=== PATIENT | female | born 2000 | race Caucasian/White ===

== ENCOUNTER → 2021-01-27 | Outpatient (CLI) | payer OTHER ==
[2021-01-27 14:16] LABS: BASO # 0.1 10*3/uL (0.0-0.1); BASO % 0.9 % (0.0-1.0); EOS # 0.3 10*3/uL (0.0-0.4); EOS % 3.3 % (1.0-4.0); HEMATOCRIT 39.8 % (37.0-47.0); LYMPH # 3.3 10*3/uL (1.3-4.4); LYMPH % 35.6 % (27.0-41.0); MEAN CELL VOLUME 96.6 fl (81.0-99.0); MEAN CORPUSCULAR HGB 31.3 pg (27.0-31.0); MEAN CORPUSCULAR HGB CONC 32.4 g/dl (33.0-37.0); MEAN PLATELET VOLUME 9.3 fl (9.6-12.3); MONO # 0.6 10*3/uL (0.1-1.0); MONO % 6.2 % (3.0-9.0); NEUT % 53.6 % (47.0-73.0); PLATELET COUNT AUTOMATED 351 10*3/uL (130-400); RED BLOOD COUNT 4.12 10*6/uL (4.10-5.10); RED CELL DISTRI WIDTH 12.9 % (0-14.5); RETICULOCYTE % 1.22 % (0.50-2.50); WHITE BLOOD COUNT 9.3 10*3/uL (4.8-10.8)
[2021-01-27 14:30] LABS: BILIRUBIN Negative (Negative); BLOOD Negative (Negative); CLARITY Clear (Clear); COLOR Yellow (Yellow); GLUCOSE Negative (Negative); KETONE Trace (Negative); LEUKO ESTERASE Negative (Negative); NITRITE Negative (Negative); SPECIFIC GRAVITY 1.025 (1.001-1.030)
[2021-01-27 14:35] LABS: ALBUMIN 3.4 gm/dl (3.1-4.5); ALKALINE PHOSPHATASE 67 U/L (45-117); BUN 11 mg/dl (7-24); CHLORIDE 110 mmol/L (98-107); CHOLESTEROL 121 mg/dL (<200); GAMMA GLUTAMYL TRANSPEPTIDASE 7 U/L (5-55); IRON 123 ug/dL (50-170); LDL CHOLESTEROL 56 mg/dL (9-159); SGOT/AST 13 IU/L (3-35); SGPT/ALT 16 U/L (12-78); SODIUM 139 mmol/L (136-145); TOTAL IRON BINDING CAPACITY 391 ug/dl (250-450); TOTAL PROTEIN 7.3 gm/dL (6.4-8.2); TRIGLYCERIDES 140 mg/dl (<150); URIC ACID 3.5 mg/dL (2.6-6.0)
[2021-01-27 14:45] LABS: BACTERIA 1+
[2021-01-27 14:46] LABS: MUCOUS 1+
[2021-01-27 15:06] LABS: FERRITIN 7.1 ng/mL (10.0-291.0); VITAMIN D, 25-HYDROXY 22.3 ng/mL (30-100)
[2021-01-28 08:08] LABS: RHEUMATOID ARTHRITIS FACTOR <10.0 IU/mL (<14.0)
[2021-01-28 13:06] LABS: ANTI-DSDNA ANTIBODIES <1 IU/mL (0-9)
== END | disposition home or self-care (01) ==
LOC: LAB 13:29
PROVIDERS: ATTEND Family Medicine
DX: E55.9 Vitamin D deficiency, unspecified (principal); R79.89 Other specified abnormal findings of blood chemistry; R53.83 Other fatigue; R74.8 Abnormal levels of other serum enzymes; E78.5 Hyperlipidemia, unspecified; E11.9 Type 2 diabetes mellitus without complications

== ENCOUNTER 2021-02-18 16:45 | Emergency (ER) | payer OTHER ==
[~2021-02-18] VITALS: Ht 157.4 cm; Wt 63.0 kg
== END 2021-02-18 19:27 | disposition left against medical advice (07) ==
LOC: ED 16:45
DX: R06.02 Shortness of breath (principal); Z53.21 Procedure and treatment not carried out due to patient leaving prior to being seen by health care provider

== ENCOUNTER 2022-11-21 10:43 | Emergency (ER) | payer SELFPAY ==
[~2022-11-21] VITALS: Ht 157.4 cm; Wt 63.5 kg
== END 2022-11-21 13:12 | disposition home or self-care (01) ==
LOC: ED 10:43
DX: S00.93XA Contusion of unspecified part of head, initial encounter (principal); S30.23XA Contusion of vagina and vulva, initial encounter; V86.56XA Driver of dirt bike or motor/cross bike injured in nontraffic accident, initial encounter; Y93.55 Activity, bike riding; Y92.410 Unspecified street and highway as the place of occurrence of the external cause; Y99.8 Other external cause status

== ENCOUNTER 2024-02-16 16:15 | Emergency (ER) | payer OTHER ==
[~2024-02-16] VITALS: Ht 177.8 cm; Wt 65.8 kg
[2024-02-16] MEDS ORDERED: PREDNISONE50 MG PO (16:46)
[2024-02-16] MEDS ORDERED: TRIAMCINOLONE ACETONIDE 0.1% OINTMENT 15 GM TUBE T ONE (16:50)
[2024-02-16] MEDS ORDERED: TRIAMCINOLONE ACETONIDE 0.1% CREAM 15 GM TUBE T ONE (16:55)
== END 2024-02-16 17:11 | disposition home or self-care (01) ==
LOC: ED
DX: L23.89 Allergic contact dermatitis due to other agents (principal)

== ENCOUNTER 2024-11-06 20:39 | Emergency (ER) | payer SELFPAY ==
[~2024-11-06] VITALS: Ht 157.4 cm; Wt 61.2 kg
[~2024-11-06 20:39] MED LIST: PREDNISONE50 MG PO
== END 2024-11-06 21:09 | disposition home or self-care (01) ==
LOC: ED 20:39
DX: J06.9 Acute upper respiratory infection, unspecified (principal)

== ENCOUNTER 2024-11-21 02:37 | Emergency (ER) | payer SELFPAY ==
[~2024-11-21] VITALS: Ht 157.4 cm; Wt 61.2 kg
[2024-11-21] MEDS ORDERED: SODIUM CHLORIDE 0.9% 1,000 ML IV ONE (03:05)
[2024-11-21] MEDS ORDERED: diphenhydrAMINE hydrochloride 50 MG/ML VIAL IV ONE (03:05)
[2024-11-21] MEDS ORDERED: Ondansetron Hydrochloride 4 MG/2 ML VIAL IV ONE (03:05)
== END 2024-11-21 05:19 | disposition home or self-care (01) ==
LOC: ED 02:37
DX: R51.9 Headache, unspecified (principal); H53.8 Other visual disturbances

== ENCOUNTER 2024-11-25 20:53 | Emergency (ER) | payer SELFPAY ==
[~2024-11-25] VITALS: Ht 157.4 cm; Wt 61.2 kg
[2024-11-25] MEDS ORDERED: Ondansetron Hydrochloride 4 MG/2 ML VIAL IV ONE (21:35)
[2024-11-25] MEDS ORDERED: SODIUM CHLORIDE 0.9% 1,000 ML IV ONE (21:35)
[2024-11-25] MEDS ORDERED: diphenhydrAMINE hydrochloride 50 MG/ML VIAL IV ONE (21:35)
[2024-11-25] MEDS ORDERED: MEDROL DOSEPAK4 MG PO (22:32)
[2024-11-25] MEDS ORDERED: NAPROSYN500 MG PO (22:32)
[2024-11-25] MEDS ORDERED: ZANAFLEX4 MG PO (22:32)
== END 2024-11-25 22:59 | disposition home or self-care (01) ==
LOC: ED 20:53
DX: R51.9 Headache, unspecified (principal); M54.2 Cervicalgia

== ENCOUNTER 2024-12-02 22:31 | Emergency (ER) | payer SELFPAY ==
[~2024-12-02] VITALS: Ht 157.4 cm; Wt 61.2 kg
[~2024-12-02 22:31] MED LIST changes: +MEDROL DOSEPAK4 MG PO; +NAPROSYN500 MG PO; +ZANAFLEX4 MG PO
[2024-12-02] MEDS ORDERED: diphenhydrAMINE hydrochloride 50 MG/ML VIAL IV ONE (22:50)
[2024-12-02] MEDS ORDERED: Metoclopramide Hydrochloride 10 MG/2 ML VIAL IV ONE (22:50)
[2024-12-02] MEDS ORDERED: Ondansetron Hydrochloride 4 MG/2 ML VIAL IV ONE (22:55)
[2024-12-02] MEDS ORDERED: COMPAZINE10 M1 PO (23:57)
== END 2024-12-03 00:01 | disposition home or self-care (01) ==
LOC: ED 22:31
DX: G43.909 Migraine, unspecified, not intractable, without status migrainosus (principal); G93.5 Compression of brain

== ENCOUNTER 2024-12-04 22:14 | Emergency (ER) | payer SELFPAY ==
[~2024-12-04] VITALS: Ht 157.4 cm; Wt 63.5 kg
[~2024-12-04 22:14] MED LIST changes: +COMPAZINE10 M1 PO
[2024-12-04] MEDS ORDERED: Ondansetron Hydrochloride 4 MG/2 ML VIAL IV ONE (22:45)
[2024-12-04] MEDS ORDERED: Dexamethasone Sodium Phospha 20 MG/5 ML VIAL IV ONE (22:45)
[2024-12-04] MEDS ORDERED: diphenhydrAMINE hydrochloride 50 MG/ML VIAL IV ONE (22:45)
[2024-12-04] MEDS ORDERED: SODIUM CHLORIDE 0.9% 1,000 ML IV ONE (22:45)
[2024-12-04] MEDS ORDERED: ACETAMINOPHEN 100 ML IV ONE (22:45)
[2024-12-05] MEDS ORDERED: IMITREX50 MG PO (11:16)
[2024-12-05] MEDS ORDERED: COLACE100 MG PO (12:56)
[2024-12-05] MEDS ORDERED: NAPROSYN500 MG PO (12:56)
[2024-12-05] MEDS ORDERED: MIRALAX POWDER17 G1 PO (12:56)
== END 2024-12-05 00:51 | disposition home or self-care (01) ==
LOC: ED 22:14
DX: R51.9 Headache, unspecified (principal)

== ENCOUNTER 2024-12-05 10:59 | Emergency (ER) | payer SELFPAY ==
[~2024-12-05] VITALS: Ht 157.4 cm; Wt 63.5 kg
[2024-12-05] MEDS ORDERED: IMITREX50 MG PO (11:16)
[2024-12-05] MEDS ORDERED: SODIUM CHLORIDE 0.9% 1,000 ML IV ONE (11:30)
[2024-12-05] MEDS ORDERED: diphenhydrAMINE hydrochloride 50 MG/ML VIAL IV ONE (11:30)
[2024-12-05] MEDS ORDERED: Metoclopramide Hydrochloride 10 MG/2 ML VIAL IV ONE (11:30)
[2024-12-05] MEDS ORDERED: MIRALAX POWDER17 G1 PO (12:56)
[2024-12-05] MEDS ORDERED: NAPROSYN500 MG PO (12:56)
[2024-12-05] MEDS ORDERED: COLACE100 MG PO (12:56)
== END 2024-12-05 13:00 | disposition home or self-care (01) ==
LOC: ED 10:59
DX: G43.909 Migraine, unspecified, not intractable, without status migrainosus (principal); K59.00 Constipation, unspecified